=== PATIENT | male | born 1995 | race Caucasian/White ===

== ENCOUNTER 2019-10-28 11:33 | Emergency (ER) | payer OTHER ==
--- OUTSIDE RECORDS SUMMARY | 2019-10-28 11:44 | XMS REPORT | Continuity of Care Document ---
:1995 External Reference #:[id number] Author Name Konrad Vickers MD Address [address] [place] [address] Problems Active Problems Provider Date Adult health examination Onset: 04/08/2014 Cobalamin deficiency Onset: 04/11/2018 Impotence of organic origin Konrad Vickers MD Onset: 10/27/2019 Neoplasm of uncertain behavior of skin Konrad Vickers MD Onset: 10/27/2019 Social History Type Date Description Comments Sex Unknown Tobacco Use Start: Unknown Patient has never smoked Smoking Status Reviewed: 10/27/19 Patient has never smoked Allergies, Adverse Reactions, Alerts Description No Known Drug Allergies Medications Active Medications SIG Qnty Indications Ordering Date Provider Sildenafil Citrate one po prn 9tabs Konrad Vickers MD 10/27/2019 intercourse 25mg Tablets History Medications No Active Medications Unknown 10/27/2019 - 10/27/2019 Meningococcal Conjugate Vaccine (Menveo) Unknown - 2016 Injection Medications Administered in Office Medication SIG Qnty Indications Ordering Provider Date Meningococcal Conjugate Vaccine Unknown 11/27/2007 (Menveo) Injection Immunizations CPT Code Status Date Vaccine Lot # [id number] Given 11/27/2007 Mening [place] - Menveo/Menactra 86209 Given 07/03/2007 Varicella (Chicken Pox) Vaccine [id number] Given 07/03/2007 Tdap - Boostrix/Adacel [id number] Refused 01/05/2017 HPV Gardasil 9 [id number] Refused 01/05/2017 Bexsero - Men B Vital Signs Date Vital Result Comment 10/27/2019 11:01am BP Systolic 102 mmHg right arm BP Diastolic 60 mmHg right arm Height 69.5 inches 5'9.50" Weight 134.00 lb Heart Rate 92 /min Body Temperature 98.3 F O2 % BldC Oximetry 99 % BMI (Body Mass Index) 19.5 kg/m2 04/11/2018 9:44am BP Systolic 90 mmHg Height 70.00 inches 5'10.00" Weight 135.00 lb Heart Rate 63 /min Body Temperature 96.6 F BMI (Body Mass Index) 19.37 kg/m2 Results Test Acquired Date Facility Test Result H/L Range Note Laboratory test 10/27/2019 [facility] Culture Throat <pending> finding [address] [place] [address] [phone] Laboratory test 10/27/2019 [facility] PSA Screening 0.630 Normal 0-4.000 1 finding [address] [facility] ng/[place] [address] [phone] Comp Metabolic 10/27/2019 [facility] Sodium 139 mmol/L Normal 135-145 Panel [address] [place] [address] [phone] Potassium 4.6 mmol/L Normal 3.5-5.0 Chloride 103 mmol/L Normal 101-111 Co2 Carbon Dioxide 27 mmol/L Normal 22-32 Anion Gap 9 mmol/L Normal 2-11 Glucose 81 mg/dL Normal 70-100 Blood Urea Nitrogen 7 mg/dL Normal 6-24 Creatinine 0.86 mg/dL Normal 0.67-1.17 BUN/Creatinine Ratio 8.1 Normal 8-20 Calcium 9.7 mg/dL Normal 8.6-10.3 Total Protein 7.2 g/dL Normal 6.4-8.9 Albumin 4.8 g/dL Normal 3.2-5.2 Globulin 2.4 g/dL Normal 2-4 Albumin/Globulin Ratio 2.0 Normal 1-3 Total Bilirubin 0.90 mg/dL Normal 0.2-1.0 Alkaline Phosphatase 58 U/L Normal 34-104 Alt 12 U/L Normal 7-52 Ast 17 U/L Normal 13-39 Egfr Non- 108.4 >60 Egfr 131.1 >60 2 Laboratory test 10/27/2019 [facility] Vitamin B12 216 pg/mL Normal 180-914 3 finding [address] [place] [address] [phone] Lipid Profile 10/27/2019 [facility] Triglycerides 37 mg/dL 4 (Trig/Chol/HDL) [address] [place] [address] [phone] Cholesterol 99 mg/dL 5 HDL Cholesterol 54.4 mg/dL 6 LDL Cholesterol 37 mg/dL 7 CFM Urinalysis 10/27/2019 [facility] Urine Specific Pep <= 1.005 ( )- - Ua PH Test Strip 6.0 Ua Color Yellow Ua Appearance Clear Ua WBC Neagtive Ua Protein Negaitve Urine Glucose QL Negative Urine Ketones QL Test Strip Negative Urine Bilirubin TTL QL T-Strip Negative Urine Urobilinogen QN TS 0.2 Urine Nitrite QL TS Negative Ua Occult Blood Negative Laboratory test 10/27/2019 [facility] Rapid Strep Negative finding ( )- - A 1 [id number] 2 Because ethnic data is not always readily available, this report includes an eGFR for both -Americans and non- Americans. The National Kidney Disease Education Program (NKDEP) does not endorse the use of the MDRD equation for patients that are not between the ages of 18 and 70, are , have extremes of body size, muscle mass, or nutritional status, or are non- or non-. According to the National Kidney Foundation, irrespective of diagnosis, the stage of the disease is based on the level of kidney function: Stage Description GFR(mL/min/1.73 m(2)) 1 Kidney damage with normal or decreased GFR 90 2 Kidney damage with mild decrease in GFR 60-89 3 Moderate decrease in GFR 30-59 4 Severe decrease in GFR 15-29 5 Kidney failure <15 (or dialysis) 3 Normal Range 180 to 914 Indeterminate Range 145 to 180 Deficient Range <145 4 Desirable: <150 Borderline High: 150-199 High: 200-499 Very High: >500 5 Desirable: <200 Borderline High: 200-239 High: >239 6 Low: <40 Desirable: 40-60 High: >60 7 Desirable: <100 Near Optimal: 100-129 Borderline High: 130-159 High: 160-189 Very High: >189 Procedures Description No Information Available Medical Devices Description No Information Available Encounters Type Date Location Provider Dx Diagnosis Office Visit 10/27/2019 11:00a [facility] Duarte Vickers MD J02.9 Acute pharyngitis, unspecified R35.0 Frequency of micturition N52.9 Male erectile dysfunction, unspecified E53.8 Deficiency of other specified B group vitamins R19.7 Diarrhea, unspecified D48.5 Neoplasm of uncertain behavior of skin Assessments Date Code Description Provider 10/27/2019 J02.9 Acute pharyngitis, unspecified Konrad Vickers MD 10/27/2019 R35.0 Frequency of micturition Konrad Vickers MD 10/27/2019 N52.9 Male erectile dysfunction, unspecified Konrad Vickers MD 10/27/2019 E53.8 Deficiency of other specified B group vitamins Konrad Vickers MD 10/27/2019 R19.7 Diarrhea, unspecified Konrad Vickers MD 10/27/2019 D48.5 Neoplasm of uncertain behavior of skin Konrad Vickers MD Plan of Treatment 10/27/2019 - Konrad Vickers MDJ02.9 Acute pharyngitis, qgqpeiqvvemY91.0 Frequency of pnvnuvomnmmW11.9 Male erectile dysfunction, cuqdzmkllqxN02.8 Deficiency of other specified B group nudohsonA73.7 Diarrhea, rrwkxwukydbQ22.5 Neoplasm of uncertain behavior of skinAllNew Medication:Sildenafil Citrate 25 mg - one po prn intercourseNo Active Medications - Functional Status Description No Information Available Mental Status Description No Information Available Referrals Description No Information Available
[2019-10-28 11:48] VITALS: BP 131/81
--- NOTE | 2019-10-28 11:49 | UC ---
Throat Pain/Nasal Gunnar HPI - HPI Summary HPI Summary: 24 yo male presents with sore throat. He tells me that for the past 2 days he has had a sore throat with redness and pain with swallowing. He tells me that he saw his PCP yesterday and strep test was negative and he was told it was likely viral and to try supportive care. Last night he felt feverish. Today his sore throat is worse and feels more swollen with pain radiating into his left ear. He is able to eat, drink, and tolerate po but states it is more difficult than yesterday. Nothing OTC today for symptoms. Denies rash, sob, chest pain, abdominal pain, n/v. - History of Current Complaint Chief Complaint: UCGeneralIllness Stated Complaint: EAR PAIN SORE THROAT Time Seen by Provider: 10/28/19 11:49 Hx Obtained From: Patient Onset/Duration: Gradual Onset Severity: Severe Pain Intensity: 8 Pain Scale Used: 0-10 Numeric - Allergies/Home Medications Allergies/Adverse Reactions: Allergies Allergy/AdvReac Type Severity Reaction Status Date / Time No Known Allergies Allergy Verified 10/28/19 11:48 PMH/Surg Hx/FS Hx/Imm Hx - Additional Past Medical History Additional PMH: None - Surgical History Surgical History: None - Family History Known Family History: Positive: None - Social History Occupation: Employed Full-time Lives: With Family Alcohol Use: Rare Substance Use Type: Marijuana Substance Use Comment - Amount & Last Used: occasionally Smoking Status (MU): Never Smoked Tobacco Type: Pipe Length of Time of Smoking/Using Tobacco: 1.5 YEARS Have You Smoked in the Last Year: No - Immunization History Most Recent Tetanus Shot: 10/09/13 Review of Systems All Other Systems Reviewed And Are Negative: No Constitutional: Positive: Fever, Fatigue, Other - Body aches Skin: Positive: Negative Eyes: Positive: Negative ENT: Positive: Sore Throat, Ear Ache Respiratory: Positive: Negative Cardiovascular: Positive: Negative Gastrointestinal: Positive: Negative Neurological/Mental Status: Positive: Negative Psychological: Positive: Negative Physical Exam - Summary Physical Exam Summary: GENERAL: NAD. WDWN. SKIN: No rashes, sores, lesions, or open wounds. HEENT: Head: AT/NC Eyes: Conjunctiva clear without inflammation or discharge. Ears: Hearing grossly normal. TMs intact, no bulging, erythema, or edema. Nose: Nasal mucosa pink and moist. NTTP maxillary and frontal sinus. Throat: Posterior oropharynx moderate erythema and 3+ tonsillar enlargement. Moderate white exudates. Uvula midline. Slight muffled voice without significant hot potato. NECK: Supple. Mildly ttp tonsillar LAD. CHEST: CTAB. No r/r/w. No accessory muscle use. Breathing comfortably and in no distress. CV: RRR. Pulses intact. Cap refill <2seconds NEURO: Alert. PSYCH: Age appropriate behavior. Triage Information Reviewed: Yes Vital Signs: Initial Vital Signs Temp 100.0 F 10/28/19 11:43 Pulse 106 10/28/19 11:43 Resp 18 10/28/19 11:43 BP 131/81 10/28/19 11:43 Pulse Ox 100 10/28/19 11:43 Laboratory Tests 10/28/19 10/28/19 12:04 12:06 Influenza A (Rapid) Negative Influenza B (Rapid) Negative Group A Strep Rapid Negative Amoxicillin/Clavulanate TAB* [Augmentin TAB 875*] 875 mg PO BID #14 tab [Rx] Vital Signs Reviewed: Yes Throat Pain/Nasal Course/Dx - Course Course Of Treatment: POC strep and flu negative. Suspect tonsillitis with ?early peritonsillar abscess --- in the clinic he was given 60mg IM toradol and 1gm ceftriaxone IM. Rx for augmentin. Strongly advised to go to the ED if he develops a fever, worsening sore throat/ tonsil enlargement, or inability to tolerate his secretions or po. - Differential Dx/Diagnosis Provider Diagnosis: Pharyngitis, Tonsillitis Discharge ED - Sign-Out/Discharge Documenting (check all that apply): Patient Departure All imaging exams completed and their final reports reviewed: No Studies - Discharge Plan Condition: Stable Disposition: HOME Prescriptions: Amoxicillin/Clavulanate TAB* [Augmentin TAB 875*] 875 mg PO BID #14 tab Patient Education Materials: Tonsillitis (ED) Referrals: Konrad Vickers MD [Primary Care Provider] - Additional Instructions: If you develop a fever, shortness of breath, chest pain, new or worsening symptoms - please call your PCP or go to the ED immediately. Your strep and flu test were negative today. You were given a shot of antibiotic and anti-inflammatory medication in the clinic for your sore throat and swollen tonsils. I recommend that you take ibuprofen 600mg every 6 hours for discomfort and to decrease inflammation. Take the antibiotic as directed. If you notice your throat pain, tonsil swelling, or fever worsen OR if you cannot tolerate/swallow your own spit or secretions - please go to the ER immediately. - Billing Disposition and Condition Condition: STABLE Disposition: Home
[2019-10-28] MEDS ORDERED: cefTRIAXone VIAL(*) 1,000 MG VIAL IM ONE (11:58)
[2019-10-28] MEDS ORDERED: Lidocaine 1% MPF ** 5 ML VIAL IM ONE (11:58)
[2019-10-28] MEDS ORDERED: Ketorolac *IM* INJ* 60 MG/2 ML VIAL IM ONE (11:58)
[2019-10-28 12:18] LABS: Influenza A Molecular Negative (Negative); Influenza B Molecular Negative (Negative)
== END 2019-10-28 12:26 | disposition home or self-care (01) ==
LOC: UCEAST 11:33
DX: J02.9 Acute pharyngitis, unspecified (principal); J03.90 Acute tonsillitis, unspecified; H92.02 Otalgia, left ear; R53.83 Other fatigue
CPT/HCPCS: 87070; 87077; 87651; 96372; 99212; G0463; J0696; J1885